=== PATIENT | female | born 2000 | race Caucasian/White ===

== ENCOUNTER 2019-02-17 12:01 | Emergency (ER) | payer SELFPAY ==
[~2019-02-17] VITALS: Ht 167.6 cm; Wt 63.5 kg
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
--- NOTE | 2019-02-17 12:15 | NUR ---
KAROLINA HATCH AT BEDSIDE FOR MSE.
--- NOTE | 2019-02-17 12:19 | NUR ---
[facility] OFFICERS IN ER.
[2019-02-17] MEDS ORDERED: ACETAMINOPHEN 650 MG/20.3 ML LIQUID UDC PO ONE (12:30)
[2019-02-17] MEDS ORDERED: ACETAMINOPHEN 650 MG/20.3 ML LIQUID UDC ONE (12:34)
[2019-02-17 12:39] LABS: BASOPHILS # (AUTO) 0.1 K/uL (0.0-8.0); BASOPHILS % (AUTO) 1.3 % (0.0-2.0); EOSINOPHILS # (AUTO) 0.1 K/uL (0.0-0.7); EOSINOPHILS % (AUTO) 1.4 % (0.0-7.0); HEMATOCRIT 37.5 % (31.2-41.9); HEMOGLOBIN 12.8 g/dL (10.9-14.3); LYMPHOCYTES # (AUTO) 2.7 K/uL (20.0-40.0); LYMPHOCYTES % (AUTO) 36.6 % (20.5-74.5); MEAN CORPUSCULAR HEMOGLOBIN 27.7 uug (24.7-32.8); MEAN CORPUSCULAR HGB CONC 34 g/dL (32.3-35.6); MEAN CORPUSCULAR VOLUME 80.9 fL (75.5-95.3); MONOCYTES # (AUTO) 0.4 K/uL (2.0-10.0); MONOCYTES % (AUTO) 5.9 % (0-11); NEUTROPHILS % (AUTO) 54.8 % (31.5-64.5); PLATELET COUNT (AUTO) 306 K/uL (179-408); RED BLOOD CELL COUNT(AUTO) 4.64 MIL/uL (3.63-4.92); WHITE BLOOD COUNT (AUTO) 7.4 K/uL (3.8-11.8)
[2019-02-17 12:41] LABS: *URINE HCG, QUAL NEGATIVE (NEGATIVE)
[2019-02-17 12:42] LABS: CREATININE 0.8 mg/dL (0.6-1.3); POTASSIUM 3.8 mmol/L (3.5-5.1)
[2019-02-17 12:46] LABS: *BLOOD, URINE 1+ (NEGATIVE); *CLARITY,URINE SLIGHTLY CLOUDY (CLEAR); *COLOR,URINE YELLOW (YELLOW); *KETONES,URINE 1+ (NEGATIVE); *UROBILINOGEN,URINE 0.2 E.U./dl (NORMAL); LEUKOCYTE ESTERASE ,URINE TRACE (NEGATIVE); NITRITE, URINE NEGATIVE (NEGATIVE); PH,URINE 5.5 (5.0-8.0); UGLUCOSE NEGATIVE (NEGATIVE)
[2019-02-17 12:48] LABS: BILIRUBIN,DIRECT 0.1 mg/dL (0.0-0.2); BILIRUBIN,TOTAL 0.6 mg/dL (0.2-1.0); TOTAL PROTEIN, SERUM 7.5 g/dL (6.4-8.2)
[2019-02-17 12:50] LABS: *BILIRUBIN,URIN 1+ (NEGATIVE)
[2019-02-17 12:53] LABS: RBC,URINE 0-3 /HPF (0-3); WBC,URINE TNTC /HPF (0-3)
[2019-02-17 12:54] LABS: BACTERIA,URINE MODERATE /HPF (NONE SEEN); MUCUS,URINE MODERATE /LPF (0-FEW); SQUAMOUS EPITHELIAL CELL,UR MODERATE /HPF (NONE SEEN)
--- NOTE | 2019-02-17 12:54 | NUR ---
PER OFFICER Kasey PUENTES (SERIAL #[id number]), AWAITING MED CLEARANCE TO TRANSPORT PT TO THE [facility] ([facility]) IN [place] FOR FURTHER EVAL.
--- NOTE | 2019-02-17 13:19 | NUR ---
[facility]
[2019-02-17] MEDS ORDERED: ONDANSETRON 4 MG/2 ML VIAL IV ONE (13:30)
[2019-02-17] MEDS ORDERED: KETOROLAC TROMETHAMINE 30 MG INJ IVP ONE (13:30)
[2019-02-17] MEDS ORDERED: IV NS 1000 ML 1,000 ML IV ONE (13:30)
[2019-02-17] MEDS ORDERED: ONDANSETRON 4 MG/2 ML VIAL ONE (13:34)
[2019-02-17] MEDS ORDERED: KETOROLAC TROMETHAMINE 30 MG INJ ONE (13:43)
--- NOTE | 2019-02-17 13:51 | NUR ---
Call placed to [facility], ETA 5 min.
[2019-02-17] MEDS ORDERED: SWABABLE VALVE TRANSFER SET EA MC ONE (14:02)
[2019-02-17] MEDS ORDERED: IV NORMAL SALINE 250 ML IV ONE (14:02)
[2019-02-17] MEDS ORDERED: IOHEXOL 300MG/ML 100 ML INFUS..BTL ONE (14:02)
[2019-02-17] MEDS ORDERED: RALTEGRAVIR POTASSIUM 400 MG TABLET PO ONE ×2 (14:30→14:55)
[2019-02-17] MEDS ORDERED: EMTRICITABINE 200 MG CAPSULE PO ONE (14:30)
[2019-02-17] MEDS ORDERED: TENOFOVIR DISOPROXIL FUMARATE 300 MG TABLET PO ONE (14:30)
[2019-02-17] MEDS ORDERED: AZITHROMYCIN 250 MG TABLET PO ONE (14:30)
[2019-02-17] MEDS ORDERED: CEFTRIAXONE 500 MG VIAL IM ONE (14:30)
[2019-02-17] MEDS ORDERED: LIDOCAINE HCL 1% 20 ML VIAL ONE (14:47)
[2019-02-17] MEDS ORDERED: CEFTRIAXONE 500 MG VIAL ONE (14:47)
[2019-02-17] MEDS ORDERED: AZITHROMYCIN 250 MG TABLET ONE (14:47)
[2019-02-17] MEDS ORDERED: TENOFOVIR DISOPROXIL FUMARATE 300 MG TABLET ONE (14:55)
[2019-02-17] MEDS ORDERED: EMTRICITABINE 200 MG CAPSULE ONE (14:55)
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
--- NOTE | 2019-02-17 15:45 | NUR ---
IV removed. Catheter intact and site benign. Pressure and 4x4 gauze applied to site. No bleeding noted.
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
[2019-02-18 08:09] LABS: HEPATITIS B SURFACE AG Negative (Negative)
[2019-02-19 05:06] LABS: HEPATITIS Be ANTIGEN Negative (Negative)
[2019-02-19 09:07] LABS: *TRIC.VAG. NAA Positive (Negative)
[2019-02-19 12:09] LABS: *GC NAA Positive (Negative)
== END 2019-02-17 16:02 ==
LOC: ER 12:01
DX: T74.21XA Adult sexual abuse, confirmed, initial encounter (principal); R10.84 Generalized abdominal pain; R11.0 Nausea; N93.9 Abnormal uterine and vaginal bleeding, unspecified; Z91.013 Allergy to seafood; Z91.018 Allergy to other foods
CPT/HCPCS: 36415; 74177; 80048; 80076; 81000; 81001; 84703; 85025; 86803; 87086; 87340; 87350; 87491; 96372; 96374; 96375; 99284; J0696; J1885; J2405; J3490; Q9967; A4663; J7030; J7050; J8499; Q0144